=== PATIENT | female | born 1990 ===

== ENCOUNTER 2022-12-17 14:18 | Outpatient (CLI) | payer OTHER | END 2022-12-17 16:30 | disposition home or self-care (01) | LOC: PRENATAL 14:18 | PROVIDERS: ATTEND Obstetrics & Gynecology Maternal & Fetal Medicine | DX: O35.9XX0 Maternal care for (suspected) fetal abnormality and damage, unspecified, not applicable or unspecified (principal); O35.3XX0 Maternal care for (suspected) damage to fetus from viral disease in mother, not applicable or unspecified; Z3A.21 21 weeks gestation of pregnancy ==

== ENCOUNTER 2023-02-23 15:44 | Outpatient (CLI) | payer OTHER ==
[2023-02-23] MEDS ORDERED: PRENATAL TABLE1 EAC4 PO (20:22)
== END 2023-02-23 17:24 | disposition home or self-care (01) ==
LOC: PRENATAL 15:44
PROVIDERS: ATTEND Obstetrics & Gynecology Maternal & Fetal Medicine
DX: O26.849 Uterine size-date discrepancy, unspecified trimester (principal); O36.8199 Decreased fetal movements, unspecified trimester, other fetus; Z3A.31 31 weeks gestation of pregnancy

== ENCOUNTER 2023-02-23 19:52 | Inpatient (IN) | payer OTHER ==
[~2023-02-23] VITALS: Ht 165.1 cm; Wt 71.2 kg
[2023-02-23] MEDS ORDERED: PRENATAL TABLE1 EAC4 PO (20:22)
== END 2023-03-02 14:56 | disposition home or self-care (01) | DRG 832 ==
LOC: OB/GYN 19:52 → LDR 19:52 → OB/GYN 02-24 19:50
PROVIDERS: ADMIT Student in an Organized Health Care Education/Training Program; ATTEND Student in an Organized Health Care Education/Training Program
PROC: 4A1HXCZ Monitoring of Products of Conception, Cardiac Rate, External Approach (ICD-10-PCS; principal; 2023-02-23)
PROC: BY4FZZZ Ultrasonography of Third Trimester, Single Fetus (ICD-10-PCS; 2023-03-02)
DX: O36.8130 Decreased fetal movements, third trimester, not applicable or unspecified (principal); O41.03X0 Oligohydramnios, third trimester, not applicable or unspecified; O36.5930 Maternal care for other known or suspected poor fetal growth, third trimester, not applicable or unspecified; O32.1XX0 Maternal care for breech presentation, not applicable or unspecified; Z3A.31 31 weeks gestation of pregnancy; Z20.822 Contact with and (suspected) exposure to COVID-19